=== PATIENT | female | born 1995 | race African-American/Black ===

== ENCOUNTER 2020-12-01 12:08 | Emergency (ER) | payer OTHER ==
[~2020-12-01] VITALS: Ht 167.6 cm; Wt 120.0 kg
[2020-12-01 12:30] VITALS: BP 148/97
[2020-12-01 15:16] LABS: CLARITY URINE CLOUDY (CLEAR); COLOR URINE YELLOW (YELLOW); KETONES URINE NEGATIVE (NEGATIVE); LEUKOCYTE ESTERASE URINE 2+ (NEGATIVE); NITRITE URINE POSITIVE (NEGATIVE); OCCULT BLOOD URINE 2+ (NEGATIVE); PH URINE 5.5 (4.5-8.0); PROTEIN URINE 1+ (NEGATIVE); SPECIFIC GRAVITY URINE 1.015 (1.005-1.030)
[2020-12-01] MEDS ORDERED: CEFTRIAXONE SODIUM 1 G/VIAL IM NR (15:30)
[2020-12-01] MEDS ORDERED: LIDOCAINE HCL 1% 20ML VIAL (Pyxis) INJ INFIL NR (15:30)
[2020-12-01] MEDS ORDERED: NAPR-681 PO (15:33)
[2020-12-01] MEDS ORDERED: SULF1TAB48 PO (15:33)
== END 2020-12-01 16:08 | disposition home or self-care (01) ==
LOC: ER 12:08
DX: N39.0 Urinary tract infection, site not specified (principal); B96.20 Unspecified Escherichia coli [E. coli] as the cause of diseases classified elsewhere
CPT/HCPCS: 81003; 81025; 87077; 87086; 87186; 96372; 99283; J0696; J3490